=== PATIENT | female | born 1990 | race African-American/Black ===

== ENCOUNTER 2021-03-29 20:15 | Emergency (ER) | payer MEDICARE, OTHER ==
[2021-03-29 20:42] LABS: Bilirubin Neg (Negative); Blood, Urine 250 (Negative); Clarity Cloudy (Clear); Glucose, Urine (Dipstick) Normal (Negative); Ketone, Urine Negative (Negative); Leukocyte 500 (Negative); Nitrite Negative (Negative); Protein, Urine (Dipstick) 100 mg/dl (Neg-Trace); Specific Gravity, Urine 1.015 (1.002-1.036); Urobilinogen Normal mg/dL (Less than 2)
[2021-03-29 20:44] LABS: Pregnancy Test - Urine (BHCG) Negative (Negative); Pregu Control Background? CLEAR/WHITE (CLR/WHITE); Pregu Control Bar Appear? YES (CONTROL BAR); Specific Gravity 1.015 (1.002-1.036)
[2021-03-29 20:49] LABS: Bacteria/HPF 1+ HPF (None Seen); WBC/HPF Greater Than 50 HPF (0-3)
== END 2021-03-29 20:58 | disposition home or self-care (01) ==
LOC: CSHERS 20:15
DX: N10 Acute pyelonephritis (principal); J45.909 Unspecified asthma, uncomplicated; F17.210 Nicotine dependence, cigarettes, uncomplicated
CPT/HCPCS: 81003; 81015; 81025; 87077; 87086; 87186; 99283

== ENCOUNTER 2022-05-13 13:04 | Emergency (ER) | payer OTHER ==
[2022-05-13] MEDS ORDERED: Lidocaine 1% (PF) 30 ML VIAL ONE (14:15)
== END 2022-05-13 15:13 | disposition home or self-care (01) ==
LOC: CSHERS 13:04
DX: L08.9 Local infection of the skin and subcutaneous tissue, unspecified (principal); F17.210 Nicotine dependence, cigarettes, uncomplicated
CPT/HCPCS: 99283; J2001